=== PATIENT | female | born 1940 | race Caucasian/White ===

== ENCOUNTER 2017-01-07 18:27 | Inpatient (IN) | payer MEDICARE ==
[~2017-01-07] VITALS: Ht 167.6 cm; Wt 44.9 kg
--- NOTE | 2017-01-07 18:55 | NUR ---
PT IS IN ROOM #1A. DR MERAZ EVALUATED THE PT.
[2017-01-07 19:38] LABS: BASOPHILS # (AUTO) 0.1 K/uL (0.0-8.0); BASOPHILS % (AUTO) 0.8 % (0.0-2.0); EOSINOPHILS # (AUTO) 0.4 K/uL (0.0-0.7); EOSINOPHILS % (AUTO) 6.3 % (0.0-7.0); HEMATOCRIT 30.1 % (37-47); HEMOGLOBIN 10.1 G/DL (12.0-16.0); LYMPHOCYTES # (AUTO) 0.8 K/UL (0.8-4.8); LYMPHOCYTES % (AUTO) 11.4 % (20.5-51.5); MEAN CORPUSCULAR HEMOGLOBIN 29.4 UUG (27.0-31.0); MEAN CORPUSCULAR HGB CONC 34 g/dL (32.0-37.0); MEAN CORPUSCULAR VOLUME 87.7 FL (81.0-99.0); MONOCYTES # (AUTO) 0.7 K/UL (0.1-1.30); MONOCYTES % (AUTO) 9.6 % (0.0-11.0); NEUTROPHILS # (AUTO) 4.8 K/UL (1.8-8.9); NEUTROPHILS % (AUTO) 71.9 % (38.5-71.5); PLATELET COUNT (AUTO) 235 K/UL (150-450); RED BLOOD CELL COUNT(AUTO) 3.44 MIL/UL (4.2-5.4); WHITE BLOOD COUNT (AUTO) 6.8 K/UL (4.0-11.2)
[2017-01-07 19:55] LABS: ALANINE AMINOTRANSFERASE 23 U/L (14-59); ALKALINE PHOSPHATASE 90 U/L (50-136); ASPARTATE AMINOTRANSFERASE 18 U/L (15-37); BILIRUBIN,DIRECT 0.1 mg/dL (0.0-0.2); BILIRUBIN,TOTAL 0.4 mg/dL (0.2-1.0); CARBON DIOXIDE 28 mmol/L (21-32); CHLORIDE 108 mmol/L (98-107); CREATININE 0.9 mg/dL (0.6-1.3); GLUCOSE 86 mg/dL (74-106); TOTAL PROTEIN, SERUM 6.7 g/dL (6.4-8.2); UREA NITROGEN, BLOOD 25 mg/dL (7-18)
[2017-01-07 19:56] LABS: ACETAMINOPHEN < 2.0 ug/mL (10-30)
[2017-01-07 20:03] LABS: ETHANOL < 3 MG/DL (0-0)
[2017-01-07 20:27] LABS: THYROID STIMULATING HORMONE 8.894 mIU/mL (0.358-3.740)
[2017-01-07] MEDS ORDERED: MAG HYDROX/AL HYDROX/SIMETH 30 ML LIQUID UDC PO ONE (20:30)
[2017-01-07] MEDS ORDERED: MAG HYDROX/AL HYDROX/SIMETH 30 ML LIQUID UDC ONE (20:37)
--- NOTE | 2017-01-07 20:43 | NUR ---
Called report to Lisa.
[2017-01-07 21:00] VITALS: BP 132/72
--- NOTE | 2017-01-07 21:05 | NUR ---
[facility] 76 [facility] for GD under the care of Dr Wall. Patient lives at home with boyfriend. According the hold, patient walked into a local business and asked to call the police. At the same time police received a call form her boyfriend starting patient walked out of their home with a stuffed animal she thinks is her baby. Her apartment is not suitable for living. Hold started on 01/07/17 at 1828 and will end on 01/10/17 at 182. Patient noted A/O x 1, calm, cooperative but poor insight and poor historian. She was able to cooperate with admission process. Skin is warm dry and intact except for long unkept toenails. will start to monitor.
[2017-01-07 21:25] LABS: *BILIRUBIN,URIN NEGATIVE (NEGATIVE); *BLOOD, URINE NEGATIVE (NEGATIVE); *CLARITY,URINE CLEAR (CLEAR); *COLOR,URINE YELLOW (YELLOW); *KETONES,URINE NEGATIVE (NEGATIVE); *PROTEIN,URINE NEGATIVE (NEGATIVE); *UROBILINOGEN,URINE 0.2 E.U./dl (NORMAL); LEUKOCYTE ESTERASE ,URINE NEGATIVE (NEGATIVE); NITRITE, URINE NEGATIVE (NEGATIVE); UGLUCOSE NEGATIVE (NEGATIVE)
[2017-01-07 21:38] LABS: MUCUS,URINE FEW /LPF (0-FEW); RBC,URINE 0-3 /HPF (0-3); WBC,URINE 0-3 /HPF (0-3)
[2017-01-07 21:50] LABS: *AMPHETAMINE, URINE NEGATIVE (NEGATIVE); *BARBITURATE, URINE NEGATIVE (NEGATIVE); *CANNABINOID, URINE NEGATIVE (NEGATIVE); *COCCAINE, URINE NEGATIVE (NEGATIVE); *OPIATE, URINE NEGATIVE (NEGATIVE); *PHENCYCLIDINE SCREEN,URINE NEGATIVE (NEGATIVE)
[2017-01-07] MEDS ORDERED: TEMAZEPAM 7.5 MG CAPSULE PO PRN (22:00)
[2017-01-07] MEDS ORDERED: LORAZEPAM 0.5 MG TABLET PO PRN (22:00)
[2017-01-07] MEDS ORDERED: MAG HYDROX/AL HYDROX/SIMETH 30 ML LIQUID UDC PO PRN (22:00)
[2017-01-07] MEDS ORDERED: ACETAMINOPHEN 325 MG TABLET PO PRN (22:00)
[2017-01-07] MEDS ORDERED: MAGNESIUM HYDROXIDE 30 ML LIQUID UDC PO PRN (22:00)
[2017-01-08 00:09] VITALS: BP 137/72
[2017-01-08 07:30] VITALS: BP 147/84
[2017-01-08] MEDS: LEVOTHYROXINE SODIUM 25 MCG TABLET PO SCH (10:46)
[2017-01-08 15:00] VITALS: BP 112/54
[2017-01-08 19:57] VITALS: BP 114/66
[2017-01-08] MEDS: QUETIAPINE FUMARATE 25 MG TABLET PO SCH (20:50)
[2017-01-09 07:30] VITALS: BP 125/76
[2017-01-09] MEDS: LEVOTHYROXINE SODIUM 25 MCG TABLET PO SCH (07:53)
[2017-01-09 15:07] VITALS: BP 103/57
[2017-01-09] MEDS: QUETIAPINE FUMARATE 25 MG TABLET PO SCH ×2 (16:48→20:23)
[2017-01-09 20:04] VITALS: BP 105/60
[2017-01-09] MEDS: DONEPEZIL 5 MG TABLET PO SCH (20:23)
[2017-01-09 20:38] VITALS: BP 111/64
[2017-01-10] MEDS: LEVOTHYROXINE SODIUM 25 MCG TABLET PO SCH (06:32)
[2017-01-10 07:30] VITALS: BP 106/67
[2017-01-10] MEDS: QUETIAPINE FUMARATE 25 MG TABLET PO SCH ×3 (08:50→20:25)
--- NOTE | 2017-01-10 15:47 | NUR ---
Initial DC Plan: Patient currently resides at home [[address] [place] [address]] Patient's son Joe feels that the patient may need SNF placement. SW will follow up with MD, patient, and patient's son Joe [[phone]] to discuss most appropriate discharge plans. SW will form a safe and proper discharge.
[2017-01-10 17:05] VITALS: BP 127/80
[2017-01-10 20:19] VITALS: BP 110/70
[2017-01-10] MEDS: DONEPEZIL 5 MG TABLET PO SCH (20:25)
[2017-01-11] MEDS: LEVOTHYROXINE SODIUM 25 MCG TABLET PO SCH (06:14)
[2017-01-11 07:30] VITALS: BP 116/73
[2017-01-11] MEDS: QUETIAPINE FUMARATE 25 MG TABLET PO SCH ×3 (08:42→20:40)
[2017-01-11] MEDS ORDERED: NO (14:51)
[2017-01-11 15:31] VITALS: BP 113/64
[2017-01-11 19:46] VITALS: BP 135/66
[2017-01-11] MEDS: DONEPEZIL 5 MG TABLET PO SCH (20:39)
--- NOTE | 2017-01-11 22:00 | NUR ---
received to care, confused, but pleasant upon approach. interacts well when engaged, but remains isolative, in her room. compliant with medications and staff direction. as of 0, she appears to be asleep. no distress noted. will continue to monitor closely.
--- NOTE | 2017-01-12 06:00 | NUR ---
slept 9.5 hours, total. assisted with am care, and shower. no distress noted.
[2017-01-12] MEDS: LEVOTHYROXINE SODIUM 25 MCG TABLET PO SCH (06:41)
[2017-01-12 07:30] VITALS: BP 101/73
--- NOTE | 2017-01-12 08:55 | NUR ---
Firearms Reporting: RICKY submitted Mental Health Report to [facility] on 01/12.
[2017-01-12] MEDS: QUETIAPINE FUMARATE 25 MG TABLET PO SCH ×3 (09:20→20:04)
[2017-01-12] MEDS: SERTRALINE HCL 50 MG TABLET PO SCH (09:21)
[2017-01-12 15:59] VITALS: BP 104/54
--- NOTE | 2017-01-12 16:20 | NUR ---
Firearms Reporting Follow Up: SW received a call from Transaction Managerkimberly Petersen of [place] [employer] [[phone]] who stated the patient has two firearms registered to her. Per Detective Petersen, they were unable to locate the firearms in patient's residence. Detective Petersen informed SW that the patient's family is planning to clean her home, where she has begun hoarding.
[2017-01-12 20:04] VITALS: BP 118/67
[2017-01-12] MEDS: DONEPEZIL 5 MG TABLET PO SCH (20:04)
--- NOTE | 2017-01-12 22:00 | NUR ---
received to care, confused, and disorganized, but pleasant upon approach. responds appropriately when engaged, but remains isolative, in her room. compliant with medications and staff direction. as of 2199, she appears to be asleep. no distress noted. will continue to monitor closely.
--- NOTE | 2017-01-13 06:00 | NUR ---
slept 9.5 hours total.
[2017-01-13] MEDS: LEVOTHYROXINE SODIUM 25 MCG TABLET PO SCH (06:52)
[2017-01-13 07:24] LABS: CARBON DIOXIDE 31 mmol/L (21-32); CHLORIDE 104 mmol/L (98-107); GLUCOSE 151 mg/dL (74-106); POTASSIUM 3.9 mmol/L (3.5-5.1); UREA NITROGEN, BLOOD 28 mg/dL (7-18)
[2017-01-13 07:26] LABS: BASOPHILS # (AUTO) 0.1 K/uL (0.0-8.0); BASOPHILS % (AUTO) 1.1 % (0.0-2.0); EOSINOPHILS # (AUTO) 0.4 K/uL (0.0-0.7); EOSINOPHILS % (AUTO) 5.3 % (0.0-7.0); HEMATOCRIT 35.6 % (37-47); HEMOGLOBIN 12.1 G/DL (12.0-16.0); LYMPHOCYTES % (AUTO) 14.1 % (20.5-51.5); MEAN CORPUSCULAR HEMOGLOBIN 29.7 UUG (27.0-31.0); MEAN CORPUSCULAR HGB CONC 34 g/dL (32.0-37.0); MEAN CORPUSCULAR VOLUME 87.6 FL (81.0-99.0); MONOCYTES # (AUTO) 0.5 K/UL (0.1-1.30); MONOCYTES % (AUTO) 6.5 % (0.0-11.0); NEUTROPHILS # (AUTO) 5.3 K/UL (1.8-8.9); PLATELET COUNT (AUTO) 324 K/UL (150-450); RED BLOOD CELL COUNT(AUTO) 4.06 MIL/UL (4.2-5.4); WHITE BLOOD COUNT (AUTO) 7.3 K/UL (4.0-11.2)
[2017-01-13 07:30] VITALS: BP 103/66
[2017-01-13] MEDS: SERTRALINE HCL 50 MG TABLET PO SCH (08:12)
[2017-01-13] MEDS: QUETIAPINE FUMARATE 25 MG TABLET PO SCH ×3 (08:14→20:39)
--- NOTE | 2017-01-13 14:09 | NUR ---
Bag Bundler: RICKY spoke with patient's APS worker Mr. Murcia [[phone]] regarding discharge plans. RICKY will follow up with Mr. Murcia upon discharge.
[2017-01-13 15:45] VITALS: BP 120/63
--- NOTE | 2017-01-13 17:30 | NUR ---
Gps/Mobile Lounge Driver- Per [employer], plan discharge tomorrow to [facility].Remains confused,but redirectable, no crying spells noted.
[2017-01-13] MEDS: DONEPEZIL 5 MG TABLET PO SCH (20:38)
[2017-01-13 20:57] VITALS: BP 125/68
--- NOTE | 2017-01-13 22:00 | NUR ---
received to care, pleasant upon approach, but confused, and disorganized. remains isolative, in her room. compliant with medications and staff direction. as of 2199, she appears to be asleep. no distress noted. will continue to monitor closely.
[2017-01-14] MEDS: LEVOTHYROXINE SODIUM 25 MCG TABLET PO SCH (06:07)
--- NOTE | 2017-01-14 06:15 | NUR ---
slept 6.0 hours, total. assisted with am care, and shower. no distress noted.
--- NOTE | 2017-01-14 08:16 | NUR ---
DC Note: Patient will be discharged to [facility] [[address] [place] [address]; ] via ambulance at 11am. RICKY spoke with Jerica at [facility] to confirm discharge plans. RICKY spoke with patient's son/SHANNAN Diaz [[phone]] who is aware and agreeable to discharge plans. Patient will follow up with Dr. Wall (Psychiatrist) and Dr. Bueno (Construction Controller).
[2017-01-14] MEDS: SERTRALINE HCL 50 MG TABLET PO SCH (08:36)
[2017-01-14] MEDS: QUETIAPINE FUMARATE 25 MG TABLET PO SCH (08:37)
--- NOTE | 2017-01-14 11:06 | NUR ---
Gps/Exchange Underwriting Consultant- Called [facility], report given to Nurse Canela.
--- NOTE | 2017-01-14 12:56 | NUR ---
Gps/Adult Parole Officer- Discharged to [facility] via ambulance, all belongings given back to patient. Patient in no distress, in good spirit,no complaints noted.
== END 2017-01-14 13:00 | DRG 885 ==
LOC: ER 18:32 → GPS 20:55
PROVIDERS: ADMIT Psychiatry & Neurology Psychosomatic Medicine; ATTEND Internal Medicine
DX: F29 Unspecified psychosis not due to a substance or known physiological condition (principal); N17.0 Acute kidney failure with tubular necrosis; E44.0 Moderate protein-calorie malnutrition; Z68.1 Body mass index [BMI] 19.9 or less, adult; E03.9 Hypothyroidism, unspecified; Z95.2 Presence of prosthetic heart valve; E78.5 Hyperlipidemia, unspecified; F03.90 Unspecified dementia, unspecified severity, without behavioral disturbance, psychotic disturbance, mood disturbance, and anxiety; D63.8 Anemia in other chronic diseases classified elsewhere
CPT/HCPCS: 36415; 70450; 80307; 84443; 85025; 93005; A4663; G0480; G0480-TC